=== PATIENT | female | born 1975 | race African-American/Black ===

== ENCOUNTER 2020-08-02 07:55 | Day surgery (SDC) | payer MEDICAID ==
[~2020-08-02] VITALS: Ht 157.5 cm; Wt 108.0 kg
[~2020-08-02 07:55] MED LIST: ADVAIR DISK1 INH; ALBUTEROL SUL0.083 % IN; HYDROCHLOROT25 MG PO; MONTELUKAST SOD10 MG PO; NORVASC5 M1 PO; VENTOLIN HFA IN
[2020-08-02] MEDS ORDERED: PERCOCET 5/325M1 TAB PO (11:01)
[2020-08-02 11:34] VITALS: BP 118/74
== END 2020-08-02 11:45 | disposition home or self-care (01) ==
LOC: ORM 07:55
PROVIDERS: ATTEND Surgery
DX: R59.0 Localized enlarged lymph nodes (principal); I10 Essential (primary) hypertension; E11.9 Type 2 diabetes mellitus without complications; J45.909 Unspecified asthma, uncomplicated; Z20.828 Contact with and (suspected) exposure to other viral communicable diseases
CPT/HCPCS: J0131